=== PATIENT | female | born 1970 | race Caucasian/White ===

== ENCOUNTER → 2018-06-06 | Outpatient (CLI) | payer BC ==
--- NOTE | 2018-06-06 11:15 | US ---
EXAMINATION TYPE: US MSK bilateral hips, gluteal tendons DATE OF EXAM: 06/06/2018 COMPARISON: NONE CLINICAL HISTORY: 48-year-old female with bilateral hip pain for 6 years, worsening over the last 2 y ears. Pain is worse when standing and wall thickening while driving. M76.0, M76.02 Gluteal tendiniti s, Bilateral hip. Technique: Targeted sonographic examination along the lateral aspect of the hips to assess the latera l gluteus medius insertions. FINDINGS: On the right, the insertion of the gluteus medius onto the lateral facet of the greater trochanter rodriguez s a hypoechoic appearance. There is mild enthesopathic change present. No kasey tear is identified or significant effusion. On the left, there is bony irregularity along the lateral facet of the greater trochanter with hypoec hoic appearance to the insertional fibers of the gluteus medius here. Possible fluid undercutting a p ortion of the insertion especially at the sites of greater bony irregularity, for example, images 29, 30, and 38. A small effusion in the subgluteus medius bursa may be present, image 31. No retracted t ear is seen. Exam limitations due to prominent subcutaneous adipose layer. IMPRESSION: 1. Targeted scanning along the lateral insertion of the bilateral gluteus medius. 2. Left greater than right gluteus medius tendinosis with partial insertional tearing on the left. 3. There is an underlying small subgluteus medius bursal effusion on the left as well. 4. If confirmation or further characterization is desired, MRI could be considered.
== END | disposition home or self-care (01) ==
LOC: RADUSWWP 10:15
PROVIDERS: ATTEND Physical Medicine & Rehabilitation Sports Medicine
DX: M25.852 Other specified joint disorders, left hip (principal); M25.851 Other specified joint disorders, right hip; M16.10 Unilateral primary osteoarthritis, unspecified hip; M25.452 Effusion, left hip; E66.9 Obesity, unspecified

== ENCOUNTER → 2018-06-15 | Outpatient (CLI) | payer BC | END | disposition home or self-care (01) | LOC: LABWHC1 08:23 | PROVIDERS: ATTEND Internal Medicine Endocrinology, Diabetes & Metabolism | DX: E27.40 Unspecified adrenocortical insufficiency (principal) | CPT/HCPCS: 36415; 82024; 82533 ==

== ENCOUNTER → 2022-04-22 | Outpatient (CLI) | payer MEDICARE, OTHER ==
--- NOTE | 2022-04-22 15:38 | CONS ---
CONSULTATION DATE OF SERVICE: 04/22/2022 52-year-old lady has been evaluated in Sleep Center for possible obstructive sleep apnea-hypopnea syndrome. HISTORY OF PRESENT ILLNESS SLEEP-WAKE EVALUATION: SLEEP SCHEDULE: Patient's usual sleep schedule from about midnight until 6 or 8:00 am. FALLING ASLEEP: No problems with falling asleep, although she has TV set in bedroom. DURING SLEEP: She usually sleeps on the back position. She has loud snoring and according to according to her family, she has episodes of stopped breathing during sleep. She wakes up from sleep 2 times with nocturia, dry mouth, episodes of grinding teeth, choking. No history of hypnagogic hallucinations, sleep paralysis or cataplexy. DURING THE DAY/SLEEP WAKE EVALUATION: In the morning, the patient wakes up tired, has difficulties paying attention, falling asleep during the day, has problems with memory, concentration, irritability, depression and anxiety. Driver Sleepiness Scale is significantly increased to 16. The patient may take naps 2 times around 10:00 am and 2:00 pm during the day. PAST MEDICAL HISTORY: Positive for hypertension, asthma, arthritis, fibromyalgia, breast CA. PAST SURGICAL HISTORY: Bilateral mastectomy, lap band surgery MEDICATIONS: Lyrica 75 mg once a day, albuterol inhaler, Naprosyn, amlodipine 5 mg once a day, Duloxetine 60 mg once a day, losartan hydrochlorothiazide 100/25 mg once a day, omeprazole 20 mg once a day. SOCIAL HISTORY: Positive for smoking for about 20 pack years, quit 5 years ago. Alcohol consumption occasional. FAMILY HISTORY: Hypertension, heart problems, stroke, sleep apnea, diabetes. REVIEW OF SYSTEMS: Multiple awakenings from sleep, significant sleepiness during the day, loud snoring. PHYSICAL EXAMINATION: GENERAL: lady without distress. BP 130/82, HR 80, RR 16, height 5 feet 5-3/4 inches and weight 283.0 pounds, body mass index 46.0. Temperature 96.6, oxygen saturation at room air 95%. Oropharynx extremely low position of soft palate, Mallampati 4. Neck is wide 18 inches in circumference. NECK: Supple, no JVD. Thyroid is not palpable. LUNGS: Clear to percussion and to auscultation. Good air exchange. No wheezing or rhonchi. HEART: S1, S2 regular. No murmurs, gallops, or rubs. ABDOMEN: Obese. Soft and nontender. Bowel sounds are present. No organomegaly appreciated. EXTREMITIES: No clubbing or cyanosis. ANALYST COMPETITIVE INTELLIGENCE: Awake, alert, and oriented X3. Cranial nerves 2 to 7 intact. There is no fasciculation or atrophy. noted. No focal deficits observed. IMPRESSION: 1. Loud snoring, witnessed episodes of stopped breathing during sleep, extremely low position of soft palate, Mallampati 4, wide neck, 18 inches in circumference, significant excessive daytime sleepiness by Driver Sleepiness Scale, obstructive sleep apnea-hypopnea syndrome. 2. Obesity; body mass index 46. 3. Hypertension. 4. History of breast cancer, status post bilateral mastectomy. 5. Asthma. 6. History of acid reflux. 7. History of fibromyalgia. 8. History of arthritis. PLAN: 1. Polysomnography for evaluation of patient's breathing during sleep. 2. CPAP/BiPAP titration if sleep study confirms obstructive sleep apnea-hypopnea syndrome. 3. Preferable position during sleep on the side. 4. No driving if patient feels any sleepiness. 5. I will see patient for follow up visit to explain results of testing and following plan. Thank you very much for referring this patient for consultation. Sincerely, Duc Segura MD, PhD, FAASM Diplomat of [employer] [employer] Sleep Medicine Board of [place] [employer] Officer of [facility] [place] MMODL / PRIYANKAN: [id number] /
== END ==
LOC: SLEEP 13:43
PROVIDERS: ATTEND Internal Medicine
DX: G47.33 Obstructive sleep apnea (adult) (pediatric) (principal); E66.9 Obesity, unspecified; Z68.42 Body mass index [BMI] 45.0-49.9, adult; I10 Essential (primary) hypertension; Z85.3 Personal history of malignant neoplasm of breast; Z90.13 Acquired absence of bilateral breasts and nipples; J45.909 Unspecified asthma, uncomplicated; Z87.39 Personal history of other diseases of the musculoskeletal system and connective tissue; Z87.19 Personal history of other diseases of the digestive system; Z88.1 Allergy status to other antibiotic agents; Z88.0 Allergy status to penicillin; Z87.891 Personal history of nicotine dependence
CPT/HCPCS: 99202

== ENCOUNTER 2022-07-13 07:49 | Day surgery (SDC) | payer MEDICARE, OTHER ==
[~2022-07-13 07:49] MED LIST: LACTATED RINGERS 1,000 ML IV SCH; LIDOCAINE 1% (10MG/ML) FOR IV START INTRADERMA PRN
[2022-07-13 08:51] VITALS: RESP 18; TEMP 97.7
[2022-07-13] MEDS ORDERED: PROPOFOL 10 MG/ML 20 ML VIAL IV ONE (09:18)
--- NOTE | 2022-07-13 09:23 | P.GSHP ---
History of Present Illness H&P Date: 07/13/22 Chief Complaint: GERD, screening 52-year-old female with history of previous lap band and then subsequent conversion to sleeve gastrectomy. Patient with intermittent reflux and occasional episodes of vomiting and regurgitation. She had been off of her antiacids but recently resumed them. Also due for screening colonoscopy. Patient says she has a history of anal fissures. Occasional rectal bleeding. No family history of colon cancer. Past Medical History Past Medical History: Asthma, Cancer, Fibromyalgia, Hypertension, Sleep Apnea/CPAP/BIPAP Additional Past Medical History / Comment(s): BREAST CANCER, in the process of arranging for cpap, arthritis generalized. DDD History of Any Multi-Drug Resistant Organisms: None Reported Past Surgical History: Bariatric Surgery, Uterine Ablation Additional Past Surgical History / Comment(s): LAP BAND INSERT AND REMOVAL THEN GASTRIC SLEEVE. EGD. COLONOSCOPY, umbilical hernia repair 2019. lumpectomy 2017 bilateral mastectomy AXEL 11/2017 Past Anesthesia/Blood Transfusion Reactions: No Reported Reaction Additional Past Anesthesia/Blood Transfusion Reaction / Comment(s): one time with anesthesia pt had the feeling of not being able to breathe felt she was not fully out. No problems with blood transfusions Smoking Status: Former smoker - Past Family History Mother Family Medical History: Cancer, Coronary Artery Disease (CAD), Diabetes Mellitus Additional Family Medical History / Comment(s): Breast Cancer, kidney issues Sister(s) Family Medical History: Cancer Additional Family Medical History / Comment(s): Hodgkins Medications and Allergies Home Medications Medication Instructions Recorded Confirmed Type Losartan/Hydrochlorothiazide 1 each PO DAILY 08/15/17 07/13/22 History [Losartan-Hctz 100-25 mg Tab] Naproxen [Naprosyn] 500 mg PO BID 08/15/17 07/13/22 History Acetaminophen [Tylenol Arthritis] 1,300 mg PO TID 07/09/22 07/13/22 History Albuterol Sulfate [Proair Hfa] 2 puff INHALATION DAILY PRN 07/09/22 07/13/22 History Cholecalciferol [Vitamin D3 (25 50 mcg PO DAILY 07/09/22 07/09/22 History Mcg = 1000 Iu)] DULoxetine HCL [Cymbalta] 60 mg PO BID 07/09/22 07/13/22 History Docusate [Colace] 100 mg PO DAILY 07/09/22 07/13/22 History Ferrous Sulfate [Iron] 325 mg PO DAILY 07/09/22 07/09/22 History Lidocaine 5% Patch [Lidoderm 5% 1 applic TOPICAL DAILY PRN 07/09/22 07/13/22 History Patch] Mv,Calcium,Min/Iron/Folic/Vitk 1 each PO DAILY 07/09/22 07/09/22 History [One-A-Day Women's Complete Tab] Pregabalin [Lyrica] 75 mg PO TID 07/09/22 07/13/22 History Unk Glucosamine/Chondroitin 2 tab PO DAILY 07/09/22 07/13/22 History amLODIPine [Norvasc] 5 mg PO DAILY 07/09/22 07/09/22 History Allergies Allergy/AdvReac Type Severity Reaction Status Date / Time erythromycin base Allergy Unknown Verified 07/13/22 08:47 Childhood Penicillins Allergy Unknown Verified 07/13/22 08:47 Childhood Surgical - Exam Vital Signs Temp Pulse Resp BP Pulse Ox 97.7 F 87 18 118/70 95 07/13/22 08:49 07/13/22 08:49 07/13/22 08:49 07/13/22 08:49 07/13/22 08:49 Physical exam: General: Well-developed, well-nourished HEENT: Normocephalic, sclerae nonicteric Abdomen: Nontender, nondistended Extremities: No edema Neuro: Alert and oriented Assessment and Plan (1) Colon cancer screening Narrative/Plan: Will proceed with upper and lower endoscopy at this time. Current Visit: Yes Status: Acute Code(s): Z12.11 - ENCOUNTER FOR SCREENING FOR MALIGNANT NEOPLASM OF COLON SNOMED Code(s): 461755641
--- NOTE | 2022-07-13 09:41 | P.PCN ---
Date of Procedure: 07/13/22 Procedure(s) Performed: PREOPERATIVE DIAGNOSIS: GERD, screening POSTOPERATIVE DIAGNOSIS: Gastritis, small gastric ulcer, diverticulosis PROCEDURE: 1. EGD with biopsy 2. Colonoscopy ANESTHESIA: MAC SURGEON: Payam Kaufman M.D. SPECIMENS: Antrum ENDOSCOPIC PROCEDURE: The patient was on the endoscopy table in the left decubitus position. The Olympus gastroscope was inserted into the oropharynx and passed under direct visualization to the region of the third portion of the duodenum. From that point the scope was slowly withdrawn inspecting all surfaces carefully. There were no neoplastic inflammatory or polypoid lesions throughout the duodenum. The pylorus was widely patent. The stomach was car efully inspected. There was gastritis present. The patient had evidence of previous sleeve gastrectomy. No retroflexion took place. In the mid aspect of the sleeve there was a small less than 1 cm relatively superficial ulceration present. The proximal sleeve appeared normal. There was no visible hiatal hernia. The esophagus was then carefully examined. There were no neoplastic inflammatory or polypoid lesions throughout the visualized esophagus. The patient was kept on the endoscopy table in the left decubitus position. The Olympus colonoscope was inserted into the anus and passed under direct visualization to the base of the cecum. The appendiceal orifice was visualized. From that point the scope was slowly withdrawn inspecting all surfaces carefully. There were no neoplastic inflammatory or polypoid lesions throughout the cecum, ascending, transverse, descending, sigmoid and rectum. There was mild scattered diverticulosis noted. Digital rectal examination was normal. The patient was taken to the recovery room in stable condition per anesthesia guidelines. RECOMMENDATIONS: Resume diet. Continue antiacid therapy. Will require repeat endoscopy in 3 months to confirm resolution of ulceration.
[2022-07-13 10:15] VITALS: BP 114/82; PULSE 68
== END 2022-07-13 10:49 | disposition home or self-care (01) ==
LOC: ORWHC2ENDO 07:49
PROVIDERS: ATTEND Surgery
DX: Z12.11 Encounter for screening for malignant neoplasm of colon (principal); K29.50 Unspecified chronic gastritis without bleeding; K57.30 Diverticulosis of large intestine without perforation or abscess without bleeding; K25.9 Gastric ulcer, unspecified as acute or chronic, without hemorrhage or perforation; J45.909 Unspecified asthma, uncomplicated; M79.7 Fibromyalgia; I10 Essential (primary) hypertension; G47.33 Obstructive sleep apnea (adult) (pediatric); M19.90 Unspecified osteoarthritis, unspecified site; Z98.891 History of uterine scar from previous surgery; Z98.84 Bariatric surgery status; Z98.890 Other specified postprocedural states; Z85.3 Personal history of malignant neoplasm of breast; Z87.891 Personal history of nicotine dependence; Z80.3 Family history of malignant neoplasm of breast; Z83.3 Family history of diabetes mellitus; Z82.49 Family history of ischemic heart disease and other diseases of the circulatory system; Z80.7 Family history of other malignant neoplasms of lymphoid, hematopoietic and related tissues; Z88.0 Allergy status to penicillin; Z88.1 Allergy status to other antibiotic agents; Z79.899 Other long term (current) drug therapy; Z99.89 Dependence on other enabling machines and devices
CPT/HCPCS: 81025; 88305; 43239; J2704; G0121

== ENCOUNTER → 2022-10-20 | Outpatient (CLI) | payer MEDICARE, OTHER ==
--- NOTE | 2022-10-20 16:53 | P.PN ---
Subjective DATE: 10/20/2022 FOLLOW UP VISIT. Patient with obstructive sleep apnea hypopnea syndrome return to sleep center for follow-up visit. Recently patient had sleep study which documented obstructive sleep apnea hypopnea syndrome. I discussed with patient results of sleep studies in details Patient was initiated on BPAP therapy and today is first visit after treatment was started. Patient was able to use BPAP equipment most of the nights but not for the whole night. The patient does not have significant problems with the mask, BPAP pressure and humidification. [place] sleepiness scale is increased to 15. I checked information from BPAP unit. BPAP maximal inspiratory pressure 24, minimal expiratory pressure 10, pressure- support 4 cm H2O. Usage is 80% and 33 % for more then 4 hours, average 3.5 hours per night. Leak is increased to 44.8 l/m. Apnea Hypopnea Index is 2.8, which is normal. MEDICATIONS:1. Lyrica 75 mg once a day 2. Albuterol 3. Amlodipine 5 mg once a day 4. Losartan [id number]/25 milligrams once a day 5. Omeprazole 20 mg once a day During physical exam: GENERAL: A pleasant patient without any distress. VITAL SIGNS: BP 123/83, HR 69, RR 18 , weight 276.8, temperature 97.1, oxygen saturation at room air 96% . HEENT: PERRLA, EOMI.low position of soft palate, Mallapati 4 . NECK: Supple. No JVD. LUNGS: Clear to percussion and to auscultation. Good air exchange. No wheezing or rhonchi. HEART: S1, S2 regular. ABDOMEN: Soft and nontender. Slightly obese EXTREMITIES: No clubbing or cyanosis. BLOCK SORTER: Awake, alert, and oriented x3. No focal deficit. Impressions: 1. Obstructive sleep apnea-hypopnea syndrome in severe range apnea-hypopnea index 49. Patient patient is using BiPAP equipment 80% of nights, but not always more than 4 hours, benefiting from treatment. 2. Obesity. 3. Hypertension. 4. History of breast cancer, status post bilateral mastectomy. 5. History of acid reflux. 6. Asthma. 7. History of fibromyalgia. 8. History of arthritis. Plan: 1. Continue using PAP equipment every night for the whole night. Patient promised to follow recommendations 2. To change air filter at least 1-2 times per month. 3. PAP unit should stay lower then position of the head. 4. Advised patient to remove all remaining water from humidifier canister daily and make it dry after each usage. Refill canister with fresh distilled water before each usage. 5. Sleep hygiene with regular time in bed for at least 8 hours. 6. Precautions related to driving. No driving if feel any sleepiness. 7. I will maintain prescription for PAP supplies including mask, tube, filters. 8. Follow up visit in 6 months or earlier if patient has any problems. 9. Watching and losing weight. Thank you very much for allowing me to participate in the management of your patient. Duc Segura MD, PhD, FAASM. Diplomat of [place] [employer], Sleep Medicine Board by [place] [employer] & President of [facility] [place]
== END ==
LOC: SLEEP 15:38
PROVIDERS: ATTEND Internal Medicine
DX: G47.33 Obstructive sleep apnea (adult) (pediatric) (principal); E66.9 Obesity, unspecified; Z99.89 Dependence on other enabling machines and devices; I10 Essential (primary) hypertension; Z90.13 Acquired absence of bilateral breasts and nipples; Z87.19 Personal history of other diseases of the digestive system; J45.909 Unspecified asthma, uncomplicated; Z87.39 Personal history of other diseases of the musculoskeletal system and connective tissue; Z88.1 Allergy status to other antibiotic agents; Z88.0 Allergy status to penicillin; Z87.891 Personal history of nicotine dependence
CPT/HCPCS: 99212

== ENCOUNTER 2022-11-16 09:33 | Day surgery (SDC) | payer MEDICARE, OTHER ==
[2022-11-11 14:10] VITALS: BMI 42.3
[2022-11-16 10:04] VITALS: TEMP 98
[2022-11-16] MEDS ORDERED: MIDAZOLAM 2 MG/2 ML VIAL ONE (10:39)
[2022-11-16] MEDS ORDERED: fentaNYL (PF) 50 MCG/ML 2 ML AMP ONE (10:39)
[2022-11-16] MEDS ORDERED: PROPOFOL 10 MG/ML 20 ML VIAL IV ONE (10:39)
[2022-11-16] MEDS ORDERED: LIDOCAINE 2% INJ 20 MG/ML (2 ML VIAL) ONE (10:39)
--- NOTE | 2022-11-16 10:46 | P.GSHP ---
History of Present Illness H&P Date: 11/16/22 Chief Complaint: Gastric ulcer 52-year-old female here today for repeat upper endoscopy. Last EGD performed in July. Patient had a small gastric ulcer and gastritis at that time. Biopsies showed mild gastritis with no H. pylori seen. Here today for repeat. Patient previously was doing Naprosyn 3 times per day. She is now doing Motrin 200 mg 3 times per day. Past Medical History Past Medical History: Asthma, Cancer, Fibromyalgia, GERD/Reflux, Hypertension, Sleep Apnea/CPAP/BIPAP Additional Past Medical History / Comment(s): right BREAST CANCER, cpap, arthritis generalized, DDD, stomach ulcer, bilateral hip tendonitis, bilateral hands with arthritis needing surgery History of Any Multi-Drug Resistant Organisms: None Reported Past Surgical History: Bariatric Surgery, Uterine Ablation Additional Past Surgical History / Comment(s): LAP BAND INSERT AND REMOVAL THEN GASTRIC SLEEVE. EGD. COLONOSCOPY, umbilical hernia repair 2019. lumpectomy 2017 bilateral mastectomy 2018 Past Anesthesia/Blood Transfusion Reactions: No Reported Reaction Additional Past Anesthesia/Blood Transfusion Reaction / Comment(s): one time with anesthesia pt had the feeling of not being able to breathe while still awake. multiple blood transfusions after sleeve with out any reactions Smoking Status: Former smoker - Past Family History Mother Family Medical History: Cancer, Coronary Artery Disease (CAD), Diabetes Mellitus Additional Family Medical History / Comment(s): Breast Cancer, kidney issues, ? factor V Sister(s) Family Medical History: Cancer Additional Family Medical History / Comment(s): Hodgkins Medications and Allergies Home Medications Medication Instructions Recorded Confirmed Type Losartan/Hydrochlorothiazide 1 each PO DAILY 08/15/17 11/16/22 History [Losartan-Hctz 100-25 mg Tab] Acetaminophen [Tylenol Arthritis] 1,300 mg PO TID 07/09/22 11/16/22 History Albuterol Sulfate [Proair Hfa] 2 puff INHALATION DAILY PRN 07/09/22 11/16/22 History Cholecalciferol [Vitamin D3 (25 50 mcg PO DAILY 07/09/22 11/16/22 History Mcg = 1000 Iu)] DULoxetine HCL [Cymbalta] 60 mg PO BID 07/09/22 11/16/22 History Docusate [Colace] 100 mg PO DAILY 07/09/22 11/16/22 History Ferrous Sulfate [Iron] 325 mg PO DAILY 07/09/22 11/16/22 History Lidocaine 5% Patch [Lidoderm 5% 1 applic TOPICAL DAILY PRN 07/09/22 11/16/22 History Patch] Mv,Calcium,Min/Iron/Folic/Vitk 1 each PO DAILY 07/09/22 11/16/22 History [One-A-Day Women's Complete Tab] Pregabalin [Lyrica] 100 mg PO TID 07/09/22 11/16/22 History amLODIPine [Norvasc] 5 mg PO DAILY 07/09/22 11/16/22 History Ibuprofen [Motrin] 400 mg PO TID 11/11/22 11/16/22 History Omeprazole [PriLOSEC] 20 mg PO DAILY 11/11/22 11/16/22 History Allergies Allergy/AdvReac Type Severity Reaction Status Date / Time erythromycin base Allergy Unknown Verified 11/16/22 10:05 Childhood Penicillins Allergy Unknown Verified 11/16/22 10:05 Childhood Surgical - Exam Vital Signs Temp Pulse Resp BP Pulse Ox 98 F 82 16 130/83 98 11/16/22 09:57 11/16/22 09:57 11/16/22 09:57 11/16/22 09:57 11/16/22 09:57 Physical exam: General: Well-developed, well-nourished HEENT: Normocephalic, sclerae nonicteric Abdomen: Nontender, nondistended Extremities: No edema Neuro: Alert and oriented Assessment and Plan (1) Gastric ulcer Narrative/Plan: Will proceed with upper endoscopy Current Visit: Yes Status: Acute Code(s): K25.9 - GASTRIC ULCER, UNSP ACU TE OR CHRONIC, W/O HEMOR OR PERF SNOMED Code(s): 592838972
--- NOTE | 2022-11-16 10:57 | P.PCN ---
Date of Procedure: 11/16/22 Procedure(s) Performed: Preoperative Dx: Gastric ulcer Postoperative Dx: Gastritis Procedure: EGD with Bx Anesthesia: Sedation Endoscopist: Dr. Kaufman Specimens: Antrum Endoscopic Procedure: The patient was on the endoscopy table in the left decubitus position. The Olympus gastroscope was inserted into the oropharynx and passed under direct visualization to the region of the third portion of the duodenum. From that point the scope was slowly withdrawn inspecting all surfaces carefully. There were no neoplastic inflammatory or polypoid lesions throughout the duodenum. The pylorus was widely patent. The stomach was carefully inspected. There was gastritis present throughout the sleeve and the antrum. A biopsy of the antrum took place no retroflexion took place. There was slight narrowing at the distal aspect of the sleeve staple line. The patient had no identifiable hiatal hernia and esophagus normal. The patient was then taken to the recovery room in stable condition per anesthesia guidelines. Recommendations: Await biopsy results. Continue Motrin 200 daily
[2022-11-16 11:20] VITALS: BP 123/84; PULSE 86; RESP 16
== END 2022-11-16 11:36 | disposition home or self-care (01) ==
LOC: ORWHC2ENDO 09:33
PROVIDERS: ATTEND Surgery
DX: K29.50 Unspecified chronic gastritis without bleeding (principal); K25.9 Gastric ulcer, unspecified as acute or chronic, without hemorrhage or perforation; J45.909 Unspecified asthma, uncomplicated; M79.7 Fibromyalgia; I10 Essential (primary) hypertension; K21.9 Gastro-esophageal reflux disease without esophagitis; G47.30 Sleep apnea, unspecified; M19.90 Unspecified osteoarthritis, unspecified site; Z87.891 Personal history of nicotine dependence; Z79.1 Long term (current) use of non-steroidal anti-inflammatories (NSAID); Z80.3 Family history of malignant neoplasm of breast; Z82.49 Family history of ischemic heart disease and other diseases of the circulatory system; Z83.3 Family history of diabetes mellitus; Z85.3 Personal history of malignant neoplasm of breast; Z88.0 Allergy status to penicillin; Z88.1 Allergy status to other antibiotic agents; Z90.13 Acquired absence of bilateral breasts and nipples
CPT/HCPCS: 88305; 43239; J2250; J3010; J2704; J2001